=== PATIENT | male | born 1960 | race Caucasian/White ===

== ENCOUNTER → 2017-06-25 | Outpatient (CLI) | payer MEDICARE, MEDICAID ==
--- NOTE | 2017-06-25 13:25 | Diagnostic Imaging Report ---
INDICATION: PICC placement. COMPARISON: None available. FINDINGS: Right PICC has tip terminating overlying the mid to lower SVC. Cardiomegaly with central vascular congestion. No pleural effusion or evidence of pulmonary edema. No dense airspace consolidation. Please note the posterior lower lobes are poorly evaluated by portable radiography. No pneumothorax. IMPRESSION: 1. Right PICC has tip in the mid to lower SVC. Findings were called to the patient's nurse Sophie at 1:20 PM on 06/25/2017. Dictated by: Dictated on workstation # [id number]
[2017-06-25 13:30] VITALS: BP_SYST 105; BP_SYST 159; BP_DIAS 72; BP_DIAS 86
== END ==
LOC: SDC 11:18
PROVIDERS: ATTEND Orthopaedic Surgery
DX: Z45.2 Encounter for adjustment and management of vascular access device (principal)
CPT/HCPCS: 36569; 71010; 76937